=== PATIENT | female | born 1985 | race Two or more races ===

== ENCOUNTER → 2022-10-03 | Outpatient (CLI) | payer OTHER ==
[2022-10-03 12:43] LABS: Basophils # (auto) 0 10 ^3/uL (0-0.2); Basophils % (auto) 0.3 % (0.0-2.0); Eosinophils # (auto) 0.1 10 ^3/uL (0-0.8); Eosinophils % (auto) 1.1 % (0.0-7.0); Hematocrit 42.6 % (36.0-46.0); Hemoglobin 14.5 g/dL (12.2-16.2); Lymphocytes # (auto) 0.8 10 ^3/uL (0.4-5.4); Lymphocytes % (auto) 11.8 % (10.0-50.0); Mean Corpuscular Hgb Conc. 34.2 g/dL (32.0-36.0); Mean Corpuscular Volume 93.7 fL (80.0-100.0); Monocytes # (auto) 0.8 10 ^3/uL (0-1.3); Monocytes % (auto) 11.8 % (0.0-12.0); Neutrophils # (auto) 5.2 10 ^3/uL (1.6-8.6); Red Blood Cells 4.54 10^6/uL (4.0-5.20); Red Cell Distribution Width 12.8 % (11.8-14.3); White Blood Cell 6.9 10^3/uL (4.4-10.8)
[2022-10-03 13:56] LABS: Follicle Stimulating Hormone 4.47 IU/L (SEE BELOW); Leuteinizing Hormone 4.2 IU/L
[2022-10-04 12:45] LABS: Urine Blood Negative /uL (Negative); Urine Specific Gravity 1.007 (1.001-1.035)
[2022-10-04 12:48] LABS: Urine WBC Clumps None Seen /hpf (None Seen)
[2022-10-04 12:49] LABS: Urine Amorphous Sediment None Seen /hpf; Urine Ca Carbonate Crystal None Seen /hpf (None Seen); Urine Fine Granular Cast None Seen /lpf; Urine Hyaline Cast None Seen /lpf (0 - 2)
[2022-10-04 12:50] LABS: Urine Amorphous Crystal None Seen /hpf (None Seen); Urine Budding Yeast None Seen /hpf (None Seen); Urine Mucus None Seen (None Seen); Urine Sperm None Seen /hpf (None Seen)
[2022-10-04 12:51] LABS: Urine Bacteria FEW /hpf (None Seen); Urine WBC 0-2 /hpf (0 - 5)
== END | disposition home or self-care (01) ==
LOC: LAB 12:04
PROVIDERS: ATTEND Obstetrics & Gynecology
DX: R87.1 Abnormal level of hormones in specimens from female genital organs (principal); N39.0 Urinary tract infection, site not specified
CPT/HCPCS: 36415; 81001; 82626; 82670; 83001; 83002; 84403; 84443; 85025; 87086

== ENCOUNTER → 2022-10-31 | Outpatient (CLI) | payer OTHER | END | disposition home or self-care (01) | LOC: LAB 15:12 | PROVIDERS: ATTEND Obstetrics & Gynecology | DX: C53.0 Malignant neoplasm of endocervix (principal); R87.612 Low grade squamous intraepithelial lesion on cytologic smear of cervix (LGSIL) ==